=== PATIENT | female | born 1980 | race Two or more races ===

== ENCOUNTER 2021-09-30 05:55 | Day surgery (SDC) | payer OTHER ==
[~2021-09-30 05:55] MED LIST: SYNTHROID100 MCG PO
[2021-09-30] MEDS ORDERED: NAPR500T14 PO (08:05)
[2021-09-30] MEDS ORDERED: MORGIDOX100 MG PO (08:05)
== END 2021-09-30 14:30 | disposition home or self-care (01) ==
LOC: EDBD → CIR.AMB 05:55
PROVIDERS: ATTEND Obstetrics & Gynecology
DX: O01.1 Incomplete and partial hydatidiform mole (principal); Z20.822 Contact with and (suspected) exposure to COVID-19

== ENCOUNTER 2021-11-09 09:33 | Outpatient (CLI) | payer OTHER ==
[~2021-11-09 09:33] MED LIST changes: +MORGIDOX100 MG PO; +NAPR500T14 PO
== END 2021-11-09 10:10 | disposition home or self-care (01) ==
LOC: RAD 09:33
PROVIDERS: ATTEND Family Medicine
DX: R06.02 Shortness of breath (principal); I10 Essential (primary) hypertension

== ENCOUNTER 2021-11-09 12:07 | Outpatient (CLI) | payer OTHER | END 2021-11-09 12:14 | disposition home or self-care (01) | LOC: LAB 12:07 | PROVIDERS: ATTEND Radiology Diagnostic Radiology | DX: K76.89 Other specified diseases of liver (principal) ==

== ENCOUNTER 2021-11-10 07:56 | Outpatient (CLI) | payer OTHER | END 2021-11-10 08:08 | disposition home or self-care (01) | LOC: MRI 07:56 | PROVIDERS: ATTEND Family Medicine | DX: K76.89 Other specified diseases of liver (principal); R93.2 Abnormal findings on diagnostic imaging of liver and biliary tract; R93.5 Abnormal findings on diagnostic imaging of other abdominal regions, including retroperitoneum | CPT/HCPCS: 72197; 74183; Q9965; 72196; 74182 ==

== ENCOUNTER 2021-11-17 08:37 | Outpatient (CLI) | payer OTHER | END 2021-11-17 08:45 | disposition home or self-care (01) | LOC: TOM 08:37 | PROVIDERS: ATTEND Obstetrics & Gynecology | DX: R97.0 Elevated carcinoembryonic antigen [CEA] (principal); K62.5 Hemorrhage of anus and rectum; R97.8 Other abnormal tumor markers; R10.2 Pelvic and perineal pain; K59.1 Functional diarrhea | CPT/HCPCS: 74177; Q9965 ==

== ENCOUNTER 2021-11-25 06:33 | Day surgery (SDC) | payer OTHER | END 2021-11-25 11:45 | disposition home or self-care (01) | LOC: AMB-ENDOS 06:33 | PROVIDERS: ATTEND Surgery | DX: C18.7 Malignant neoplasm of sigmoid colon (principal); C78.7 Secondary malignant neoplasm of liver and intrahepatic bile duct; Z20.822 Contact with and (suspected) exposure to COVID-19; E03.9 Hypothyroidism, unspecified; R19.4 Change in bowel habit; R97.0 Elevated carcinoembryonic antigen [CEA] ==

== ENCOUNTER 2021-12-20 06:15 | Day surgery (SDC) | payer OTHER ==
[2021-12-20] MEDS ORDERED: ULTRACET PO (09:20)
== END 2021-12-20 12:10 | disposition home or self-care (01) ==
LOC: CIR.AMB 06:15
PROVIDERS: ATTEND Surgery
DX: C18.7 Malignant neoplasm of sigmoid colon (principal); C78.7 Secondary malignant neoplasm of liver and intrahepatic bile duct; C78.89 Secondary malignant neoplasm of other digestive organs; R19.4 Change in bowel habit; K62.89 Other specified diseases of anus and rectum; E03.9 Hypothyroidism, unspecified

== ENCOUNTER 2022-05-20 09:00 | Outpatient (CLI) | payer OTHER ==
[~2022-05-20 09:00] MED LIST changes: +ULTRACET PO
== END 2022-05-20 09:07 | disposition home or self-care (01) ==
LOC: TOM 09:00
PROVIDERS: ATTEND Internal Medicine Hematology & Oncology
DX: C20 Malignant neoplasm of rectum (principal); C78.7 Secondary malignant neoplasm of liver and intrahepatic bile duct
CPT/HCPCS: 71260; 74177; Q9965

== ENCOUNTER 2022-09-29 07:58 | Outpatient (CLI) | payer OTHER | END 2022-09-29 08:11 | disposition home or self-care (01) | LOC: TOM 07:58 | DX: C78.7 Secondary malignant neoplasm of liver and intrahepatic bile duct (principal) | CPT/HCPCS: 74178; Q9965 ==

== ENCOUNTER 2022-11-15 10:28 | Outpatient (CLI) | payer OTHER | END 2022-11-15 10:32 | disposition home or self-care (01) | LOC: RAD 10:28 | PROVIDERS: ATTEND Surgery | DX: R97.0 Elevated carcinoembryonic antigen [CEA] (principal); C78.7 Secondary malignant neoplasm of liver and intrahepatic bile duct; R97.8 Other abnormal tumor markers; R19.4 Change in bowel habit; R19.5 Other fecal abnormalities; C18.7 Malignant neoplasm of sigmoid colon ==

== ENCOUNTER 2022-11-22 09:45 | Inpatient (IN) | payer OTHER ==
[~2022-11-22] VITALS: Ht 157.5 cm; Wt 64.4 kg
[2022-11-27] MEDS ORDERED: HYOSCYAMINE0.125 M1 SL (10:47)
[2022-11-27] MEDS ORDERED: TRAMADOL HCL50 MG PO (10:48)
== END 2022-11-27 12:14 | disposition home or self-care (01) | DRG 330 ==
LOC: SURG 11-24 07:00 → O/R 11-24 07:18 → SURG 11-24 10:30 → SURH 11-24 13:07 → SURG 11-24 15:00
PROVIDERS: ADMIT Surgery; ATTEND Surgery
PROC: 0DBP4ZZ Excision of Rectum, Percutaneous Endoscopic Approach (ICD-10-PCS; 2022-11-24)
PROC: 07BC4ZZ Excision of Pelvis Lymphatic, Percutaneous Endoscopic Approach (ICD-10-PCS; 2022-11-24)
PROC: 0DBM4ZX Excision of Descending Colon, Percutaneous Endoscopic Approach, Diagnostic (ICD-10-PCS; 2022-11-24)
PROC: 0DJD8ZZ Inspection of Lower Intestinal Tract, Via Natural or Artificial Opening Endoscopic (ICD-10-PCS; 2022-11-24)
PROC: 0DTN4ZZ Resection of Sigmoid Colon, Percutaneous Endoscopic Approach (ICD-10-PCS; principal; 2022-11-24 07:00)
DX: C18.7 Malignant neoplasm of sigmoid colon (principal); C78.7 Secondary malignant neoplasm of liver and intrahepatic bile duct; R71.0 Precipitous drop in hematocrit; E03.9 Hypothyroidism, unspecified

== ENCOUNTER 2023-01-13 10:35 | Outpatient (CLI) | payer OTHER ==
[~2023-01-13 10:35] MED LIST changes: +HYOSCYAMINE0.125 M1 SL; +TRAMADOL HCL50 MG PO
== END 2023-01-13 10:41 | disposition home or self-care (01) ==
LOC: MRI 10:35
PROVIDERS: ATTEND Internal Medicine Hematology & Oncology
DX: C18.7 Malignant neoplasm of sigmoid colon (principal); C78.7 Secondary malignant neoplasm of liver and intrahepatic bile duct
CPT/HCPCS: 72197